=== PATIENT | female | born 1960 | race Caucasian/White ===

== ENCOUNTER 2017-01-31 16:48 | Outpatient (CLI) | payer OTHER | END 2017-01-31 23:59 | disposition home or self-care (01) | LOC: D.MAMMO 16:48 | DX: Z12.31 Encounter for screening mammogram for malignant neoplasm of breast (principal) ==

== ENCOUNTER → 2018-02-25 22:38 | Outpatient (CLI) | payer OTHER | END | disposition home or self-care (01) | LOC: D.MAMMO 08:30 | DX: R92.8 Other abnormal and inconclusive findings on diagnostic imaging of breast (principal) ==